=== PATIENT | male | born 1960 | race Caucasian/White ===

== ENCOUNTER → 2017-11-13 | Outpatient (CLI) | payer MEDICARE ==
--- NOTE | 2017-11-13 09:23 | RAD ---
Testicular ultrasound History: rt testicular discomfort x's couple of months intermittent . Comparison: None. Technique: Multiple grayscale, color flow Doppler and Doppler spectral analysis images of the scrotum are obtained. Findings: Right testicle measures 3.2 x 3.3 x 2.4 cm. Right testicle demonstrates normal parenchymal echogenicity. There is a 3 mm right epididymal head cyst or spermatocele. Left testicle measures 3.3 x 3.3 x 2.5 cm. Left testicle demonstrates normal parenchymal echogenicity. The left epididymis is unremarkable. No hyperemia of the epididymides is seen. There is no varicocele. Scrotal hyperemia or swelling are not seen. There are small bilateral hydroceles. Doppler imaging demonstrates normal flow to both testicles, without evidence of torsion. IMPRESSION: 1. No evidence of testicular mass or torsion. 2. Small bilateral hydroceles. 3. Tiny right epididymal head cyst or spermatocele. Electronically signed by: Ramana Palafox MD (11/13/2017 9:20 AM) [id number]
== END | disposition home or self-care (01) ==
LOC: US 08:24
PROVIDERS: ATTEND Physician Assistant
DX: N43.2 Other hydrocele (principal)
CPT/HCPCS: 76870

== ENCOUNTER → 2018-05-13 | Outpatient (CLI) | payer MEDICARE ==
--- NOTE | 2018-05-13 17:29 | RAD ---
CHEST PA LATERAL History: Cough, shortness of breath for 2 weeks Comparison: July 16, 2012 Findings: Single lateral view of the chest and 2 PA views of the chest are submitted. There is no lobar consolidation, pleural fluid, pneumothorax. Heart size is stable, within normal limits. There is emphysema. Impression: 1. There is emphysema, no significant infiltrate. Electronically signed by: Manoj Duran MD (05/13/2018 5:24 PM) [id number]
== END | disposition home or self-care (01) ==
LOC: RAD 17:02
PROVIDERS: ATTEND Physician Assistant
DX: J43.9 Emphysema, unspecified (principal)
CPT/HCPCS: 71046

== ENCOUNTER → 2019-09-01 | Outpatient (CLI) | payer MEDICARE ==
--- NOTE | 2019-09-01 12:07 | RAD ---
EXAM: Left toes 2 views. HISTORY: Left foot/toe pain. COMPARISON: None. FINDINGS: There is focal soft tissue swelling along the distal third digit, centering about the nailbed. There is cortical erosion of the dorsal aspect of the distal phalanx consistent with osteomyelitis. A pathologic fracture likely traverses the proximal aspect of the distal phalanx. Other joint spaces and alignment are maintained. IMPRESSION: 1. Correlate for a nailbed infection of the third digit without underlying osteomyelitis and a pathologic fracture of the third distal phalanx. Electronically signed by: Joy Bateman MD (09/01/2019 12:04 PM) [id number]
== END ==
LOC: RAD 10:13
PROVIDERS: ATTEND Physician Assistant Medical
DX: L03.032 Cellulitis of left toe (principal)
CPT/HCPCS: 73660

== ENCOUNTER → 2019-10-19 | Outpatient (CLI) | payer MEDICARE ==
--- NOTE | 2019-10-19 10:00 | RAD ---
CHEST PA LATERAL History: Chest pain Comparison: May 13, 2018 Findings: 2 PA views of the chest and single lateral view of the chest are submitted. There is again likely fibrotic change near the right lung apex. There is emphysema. There is no new lobar consolidation, dependent pleural fluid, or pneumothorax. Impression: 1. There is emphysema. Electronically signed by: Manoj Duran MD (10/19/2019 9:57 AM) [id number]
== END | disposition home or self-care (01) ==
LOC: PMG 09:29
PROVIDERS: ATTEND Physician Assistant
DX: J43.9 Emphysema, unspecified (principal)
CPT/HCPCS: 71046

== ENCOUNTER → 2020-03-24 | Outpatient (CLI) | payer MEDICARE ==
[~2020-03-24] MED LIST: ALBU0.63 NEB; ALBU2.5V8 IH; BUDE10.2 IH; OMEP40CA45 PO; UMEC62.5 IH
== END ==
LOC: LAB 07:30
PROVIDERS: ATTEND Nurse Anesthetist, Certified Registered
CPT/HCPCS: U0003

== ENCOUNTER → 2020-03-28 | Day surgery (SDC) | payer MEDICARE ==
[~2020-03-28] MED LIST changes: +BALANCED SALT IRRIG OPHTH SOLN 15 ML BOTTLE. IO ONE; +BALANCED SALT IRRIG OPHTH SOLN 15 ML BOTTLE. IRR ONE; +CATARACT OPHTH GEL 0.5 ML SYRINGE. OS ONE; +CHONDROIT-SOD-HYALURONATE KIT. OS ONE; +EPINEPHrine AMPULE 0.5 MG in BALANCED SALT IRRIG SOLN PLUS 500 ML IO ONE; +ERYTHROMYCIN 0.5% OPHTH OINTMENT 1GM TUBE. OS ONE; +HYALURONIDASE 75UNITS in LIDOCAINE 2% PF OPHTH 10 ML SYRINGE. ONE; +HYALURONIDASE 75UNITS in LIDOCAINE 2% PF OPHTH 10 ML SYRINGE. OS ONE; +IPRATRPIUM/ALBUTEROL 0.5/2.5MG 3 ML NEBU. NEB PRN; +IV RINGERS SOLUTION,LACTATED 1,000 ML IV SCH; +KETOROLAC TROMETHAMINE 0.5% OPHTH SOLUTION BOTTLE. ONE; +KETOROLAC TROMETHAMINE 0.5% OPHTH SOLUTION BOTTLE. OS ONE; +KETOROLAC TROMETHAMINE 0.5% OPHTH SOLUTION BOTTLE. OS SCH; +MIDAZOLAM HCL PF 2 MG/2 ML VIAL. IV ONE; +MOXIFLOXACIN 0.5% OPHTH SOLUTION 3ML BOTTLE. OS ONE; +MOXIFLOXACIN 0.5% OPHTH SOLUTION 3ML BOTTLE. OS SCH; +ONDANSETRON PF 4 MG/2 ML VIAL. IV PRN; +POVIDONE-IODINE 5% OPHTH SOLUTION 30ML BOTTLE. OS ONE; +PROPOFOL 10,000 MCG/ML (20ML) VIAL IV ONE; +TETRACAINE 0.5% OPHTH SOLUTION 4ML BOTTLE. OS ONE; +TETRACAINE 0.5% OPHTH SOLUTION 4ML BOTTLE. OU ONE; +prednisoLONE ACETATE 1% OPHTH SUSPENSION 5ML BOTTLE. ONE; +prednisoLONE ACETATE 1% OPHTH SUSPENSION 5ML BOTTLE. OS ONE; +prednisoLONE ACETATE 1% OPHTH SUSPENSION 5ML BOTTLE. OS SCH
[2020-03-28] MEDS: MOXIFLOXACIN 0.5% OPHTH SOLUTION 3ML BOTTLE. OS SCH ×3 (07:44→07:59)
[2020-03-28 08:55] VITALS: BP 114/55
--- NOTE | 2020-03-28 09:04 | PDOC4 ---
Phaco IOL/Cataract/OS Date of Procedure: Mar 28, 2020 Preoperative Diagnosis: Senile Cataract, Left Eye Postoperative Diagnosis: Senile Cataract, Left Eye Anesthesia: Local (Block) with monitored anesthesia care Surgeon: Yasmine Pabon D.O. Procedure: Left Phacoemulsification with Intraocular Lens Implant Findings: Senile Cataract Indications: Worsening vision interfering with patient's lifestyle Narrative: After discussing the risks, complications and alternatives, including but not limited to loss of vision, infection, bleeding, swelling, anesthetic reaction, capsule rupture with vitreous loss, etc., the patient was given a peribulbar block under mild IV sedation and cardiac monitoring. Pressure was applied to the eye for approximately 10 minutes. The patient was transferred to the main operating room and was prepped and draped in the usual sterile fashion and positioned under the microscope. A lid speculum was placed. A temporal clear corneal incision was made with a keratome and viscoelastic was injected into the eye. A side port incision was made. A continuous tear capsulorrhexis was performed, then hydrodissection was accomplished with balanced salt solution. The phacoemulsification needle was placed in the eye and the nucleus was emulsified. The remaining cortical material was removed with the irrigation and aspiration apparatus. The capsule was polished as needed. The posterior capsule was noted to be clean and intact. Viscoelastic was injected into the eye inflating the capsular bag. An intraocular lens was injected into the eye, unfolding as desired and was positioned in the capsular bag. The viscoelastic was aspirated from the eye. The wound edges were hydrated with balanced salt solution and there were no leaks. Viscoelastic was injected over the limbal incisions. Antibiotic and steroid were placed on the eye. The lid speculum was removed, the eye patched shut and a Ruiz shield applied. There were no complications and the patient was taken to the PACU in good condition. YASMINE PABON DO Mar 28, 2020 09:04
== END | disposition home or self-care (01) ==
LOC: SURG 07:18
PROVIDERS: ATTEND Ophthalmology
DX: H25.12 Age-related nuclear cataract, left eye (principal); J43.9 Emphysema, unspecified; Z79.899 Other long term (current) drug therapy; Z98.890 Other specified postprocedural states
CPT/HCPCS: 66984; J2704; V2632

== ENCOUNTER → 2020-05-12 | Outpatient (CLI) | payer MEDICARE ==
[2020-03-28 08:55] VITALS: BP 114/55
[~2020-05-12] MED LIST changes: -BALANCED SALT IRRIG OPHTH SOLN 15 ML BOTTLE. IO ONE; -BALANCED SALT IRRIG OPHTH SOLN 15 ML BOTTLE. IRR ONE; -CATARACT OPHTH GEL 0.5 ML SYRINGE. OS ONE; -CHONDROIT-SOD-HYALURONATE KIT. OS ONE; -EPINEPHrine AMPULE 0.5 MG in BALANCED SALT IRRIG SOLN PLUS 500 ML IO ONE; -ERYTHROMYCIN 0.5% OPHTH OINTMENT 1GM TUBE. OS ONE; -HYALURONIDASE 75UNITS in LIDOCAINE 2% PF OPHTH 10 ML SYRINGE. ONE; -HYALURONIDASE 75UNITS in LIDOCAINE 2% PF OPHTH 10 ML SYRINGE. OS ONE; -IPRATRPIUM/ALBUTEROL 0.5/2.5MG 3 ML NEBU. NEB PRN; -IV RINGERS SOLUTION,LACTATED 1,000 ML IV SCH; -KETOROLAC TROMETHAMINE 0.5% OPHTH SOLUTION BOTTLE. ONE; -KETOROLAC TROMETHAMINE 0.5% OPHTH SOLUTION BOTTLE. OS ONE; -KETOROLAC TROMETHAMINE 0.5% OPHTH SOLUTION BOTTLE. OS SCH; -MIDAZOLAM HCL PF 2 MG/2 ML VIAL. IV ONE; -MOXIFLOXACIN 0.5% OPHTH SOLUTION 3ML BOTTLE. OS ONE; -MOXIFLOXACIN 0.5% OPHTH SOLUTION 3ML BOTTLE. OS SCH; -ONDANSETRON PF 4 MG/2 ML VIAL. IV PRN; -POVIDONE-IODINE 5% OPHTH SOLUTION 30ML BOTTLE. OS ONE; -PROPOFOL 10,000 MCG/ML (20ML) VIAL IV ONE; -TETRACAINE 0.5% OPHTH SOLUTION 4ML BOTTLE. OS ONE; -TETRACAINE 0.5% OPHTH SOLUTION 4ML BOTTLE. OU ONE; -prednisoLONE ACETATE 1% OPHTH SUSPENSION 5ML BOTTLE. ONE; -prednisoLONE ACETATE 1% OPHTH SUSPENSION 5ML BOTTLE. OS ONE; -prednisoLONE ACETATE 1% OPHTH SUSPENSION 5ML BOTTLE. OS SCH
== END ==
LOC: LAB 07:49
PROVIDERS: ATTEND Nurse Anesthetist, Certified Registered
DX: Z01.812 Encounter for preprocedural laboratory examination (principal); Z20.828 Contact with and (suspected) exposure to other viral communicable diseases; H26.9 Unspecified cataract
CPT/HCPCS: U0003

== ENCOUNTER → 2020-05-16 | Day surgery (SDC) | payer MEDICARE ==
[~2020-05-16] MED LIST changes: +BALANCED SALT IRRIG OPHTH SOLN 15 ML BOTTLE. IRR ONE; +CATARACT OPHTH GEL 0.5 ML SYRINGE. OD ONE; +CHONDROIT-SOD-HYALURONATE KIT. OD ONE; +EPINEPHrine AMPULE 0.5 MG in BALANCED SALT IRRIG SOLN PLUS 500 ML IO ONE; +ERYTHROMYCIN 0.5% OPHTH OINTMENT 1GM TUBE. OD ONE; +HYALURONIDASE 75UNITS in LIDOCAINE 2% PF OPHTH 10 ML SYRINGE. OD ONE; +IPRATRPIUM/ALBUTEROL 0.5/2.5MG 3 ML NEBU. NEB PRN; +IV RINGERS SOLUTION,LACTATED 1,000 ML IV SCH; +KETOROLAC TROMETHAMINE 0.5% OPHTH SOLUTION BOTTLE. OD SCH; +MIDAZOLAM HCL PF 2 MG/2 ML VIAL. IV ONE; +MOXIFLOXACIN 0.5% OPHTH SOLUTION 3ML BOTTLE. OD SCH; +ONDANSETRON PF 4 MG/2 ML VIAL. IV PRN; +POVIDONE-IODINE 5% OPHTH SOLUTION 30ML BOTTLE. OD ONE; +PROPOFOL 10,000 MCG/ML (20ML) VIAL IV ONE; +TETRACAINE 0.5% OPHTH SOLUTION 4ML BOTTLE. OD ONE; +TETRACAINE 0.5% OPHTH SOLUTION 4ML BOTTLE. OU ONE; +prednisoLONE ACETATE 1% OPHTH SUSPENSION 5ML BOTTLE. OD SCH
[2020-05-16] MEDS: MOXIFLOXACIN 0.5% OPHTH SOLUTION 3ML BOTTLE. OD SCH ×3 (06:41→06:56)
--- NOTE | 2020-05-16 08:22 | PDOC4 ---
Phaco IOL/Cataract/OD Date of Procedure: May 16, 2020 Preoperative Diagnosis: Preoperative Diagnosis: Senile Cataract, Right Eye Postoperative Diagnosis: Senile Cataract, Right Eye Anesthesia: Local with monitored anesthesia care Surgeon: Yasmine Pabon D.O. Procedure: Right Phacoemulsification with Intraocular Lens Implant Findings: Senile Cataract Indications: Worsening vision interfering with patient's lifestyle Narrative: After discussing the risks, complications and alternatives, including but not limited to loss of vision, infection, bleeding, swelling, anesthetic reaction, capsule rupture with vitreous loss, etc., the patient was given a peribulbar block under mild IV sedation and cardiac monitoring. Pressure was applied to the eye for approximately 10 minutes. The patient was transferred to the main operating room and was prepped and draped in the usual sterile fashion and positioned under the microscope. A lid speculum was placed. A temporal clear corneal incision was made with a keratome and viscoelastic was injected into the eye. A side port incision was made. A continuous tear capsulorrhexis was performed, then hydrodissection was accomplished with balanced salt solution. The phacoemulsification needle was placed in the eye and the nucleus was emulsified. The remaining cortical material was removed with the irrigation and aspiration apparatus. The capsule was polished as needed. The posterior capsule was noted to be clean and intact. Viscoelastic was injected into the eye inflating the capsular bag. An intraocular lens was injected into the eye, unfolding as desired and was positioned in the capsular bag. The viscoelastic was aspirated from the eye. The wound edges were hydrated with balanced salt solution and there were no leaks. Viscoelastic was injected over the limbal incisions. Antibiotic and steroid were placed on the eye. The lid speculum was removed, the eye patched shut and a Ruiz shield applied. There were no complications and the patient was taken to the PACU in good condition. YASMINE PABON DO May 16, 2020 08:22
[2020-05-16 08:36] VITALS: BP 128/86
== END | disposition home or self-care (01) ==
LOC: SURG 06:21
PROVIDERS: ATTEND Ophthalmology
DX: H25.11 Age-related nuclear cataract, right eye (principal); J43.9 Emphysema, unspecified; Z98.42 Cataract extraction status, left eye; Z79.899 Other long term (current) drug therapy; Z98.890 Other specified postprocedural states
CPT/HCPCS: 66984; J0171; J2704; V2632